=== PATIENT | female | born 1980 | race Caucasian/White ===

== ENCOUNTER 2021-03-23 17:56 | Emergency (ER) | payer OTHER ==
[~2021-03-23] VITALS: Ht 162.6 cm; Wt 72.6 kg
[2021-03-23 19:19] VITALS: BP 142/92
[2021-03-23] MEDS ORDERED: CEPH-588 PO (21:39)
== END 2021-03-23 22:38 | disposition home or self-care (01) ==
LOC: MED 17:56
DX: N39.0 Urinary tract infection, site not specified (principal); F17.210 Nicotine dependence, cigarettes, uncomplicated
CPT/HCPCS: 81002; 81025; 99283

== ENCOUNTER 2021-10-28 21:48 | Emergency (ER) | payer OTHER ==
[~2021-10-28] VITALS: Ht 162.6 cm; Wt 72.6 kg
[~2021-10-28 21:48] MED LIST: CEPH-588 PO
[2021-10-28 21:53] VITALS: BP 131/99
[2021-10-28 22:30] LABS: BASOPHILS # (AUTO) 0.1 K/uL (0.00-0.22); BASOPHILS % (AUTO) 0.8 % (0.0-2.0); EOSINOPHILS # (AUTO) 0.5 K/uL (0-0.4); EOSINOPHILS % (AUTO) 5.9 % (0.0-4.0); HEMATOCRIT 48.9 % (36-48); HEMOGLOBIN 16.5 g/dL (12.0-16.0); LYMPHOCYTES # (AUTO) 2.7 K/uL (2.5-16.5); LYMPHOCYTES % (AUTO) 32.6 % (20.5-51.1); MEAN CORPUSCULAR HEMOGLOBIN 31 pg (27-31); MEAN CORPUSCULAR HGB CONC 34 g/dL (33-37); MEAN CORPUSCULAR VOLUME 92.5 fL (80-94); MONOCYTES # (AUTO) 0.5 K/uL (0.8-1.0); MONOCYTES % (AUTO) 6.5 % (1.7-9.3); NEUTROPHILS # (AUTO) 4.5 K/uL (1.8-7.7); NEUTROPHILS % (AUTO) 54.2 % (42.2-75.2); PLATELET COUNT (AUTO) 298 K/uL (140-450); RED BLOOD CELL COUNT(AUTO) 5.29 MIL/uL (4.20-5.40); WHITE BLOOD COUNT (AUTO) 8.3 K/uL (4.8-10.8)
[2021-10-28 22:45] LABS: ANION GAP 9.7 (8-16); CARBON DIOXIDE 29.5 mmol/L (21-32); POTASSIUM 4.2 mmol/L (3.5-5.1); TOTAL BILIRUBIN 0.3 mg/dL (0.0-1.0)
[2021-10-29 00:26] VITALS: BP 125/66
[2021-10-29] MEDS ORDERED: OMEP40EC24 PO (00:41)
--- NOTE | 2021-10-29 00:52 | NUR ---
d/c with VSS. d/c education given. opportunity to ask questions given and answered. rx of prilosec given.
== END 2021-10-29 00:52 | disposition home or self-care (01) ==
LOC: MED 21:48
DX: R10.13 Epigastric pain (principal); R06.02 Shortness of breath; R19.7 Diarrhea, unspecified; F17.210 Nicotine dependence, cigarettes, uncomplicated; Z98.890 Other specified postprocedural states; Z79.2 Long term (current) use of antibiotics
CPT/HCPCS: 36415; 71045; 80053; 81002; 81025; 83690; 85025; 99285

== ENCOUNTER 2023-05-14 12:08 | Emergency (ER) | payer MEDICAID, OTHER ==
[~2023-05-14] VITALS: Ht 162.6 cm; Wt 63.5 kg
[~2023-05-14 12:08] MED LIST changes: +OMEP40EC24 PO
[2023-05-14 12:25] VITALS: BP 130/81; PULSE 102; RESP 18; TEMP 98.5; O2SAT 98
[2023-05-14 13:30] LABS: APPEARANCE,URINE CLEAR (CLEAR); BILIRUBIN,URINE 1+ (NEGATIVE); BLOOD, URINE NEGATIVE (NEGATIVE); COLOR,URINE YELLOW (YELLOW); LEUKOCYTE ESTERASE ,URINE TRACE (NEGATIVE); NITRITE, URINE NEGATIVE (NEGATIVE); PROTEIN,URINE 1+ (NEGATIVE); UGLUCOSE NEGATIVE (NEGATIVE); UROBILINOGEN,URINE 0.2 EU/dL (0.2 - 1)
[2023-05-14] MEDS ORDERED: CEPH-588 PO (13:47)
[2023-05-14 14:02] LABS: BACTERIA,URINE 1+ /HPF (None Seen); ICTOTEST NEGATIVE (NEGATIVE); RBC,URINE 0-5 /HPF (0-5); SQUAMOUS EPITHELIAL CELL,UR 80-100 /LPF (0-3 (FEW))
== END 2023-05-14 14:05 | disposition home or self-care (01) ==
LOC: MED 12:08
DX: N39.0 Urinary tract infection, site not specified (principal); Z79.899 Other long term (current) drug therapy
CPT/HCPCS: 81001; 81025; 87086; 99283